=== PATIENT | female | born 1940 | race Caucasian/White ===

== ENCOUNTER 2016-09-14 16:22 | Emergency (ER) | payer OTHER, BC ==
[~2016-09-14] VITALS: Ht 162.6 cm; Wt 63.5 kg
--- NOTE | ~2016-09-14 | EKG ---
[place] [address] [facility] [place] [address] ELECTROCARDIOGRAM REPORT Name: SUSAN ZELAYA Room #: [facility]#: [id number] Admission: 09/14/16 Attend Phys: Discharge: 09/14/16 Date of : 44 Report #: [id number] THIS REPORT FOR: //name// [facility] ED Test Date: 2016-09-14 Test Time: 16:38:19 Pat Name: SUSAN ZELAYA Department: Room: Gender: F [employer] Professor: Tania CABALLERO : 1940 Requested By: Venu Cash Order Number: [id number] MD: Francis Burton Measurements Intervals [place] Rate: 61 P: 43 MD: 177 QRS: -6 QRSD: 88 T: 70 QT: 418 QTc: 421 Interpretive Statements Sinus rhythm Multiple atrial premature complexes Probable left atrial enlargement No previous ECG available for comparison Electronically Signed On 09-15-2016 16:15:49 CDT by Francis Burton [email or web address] <ELECTRONICALLY SIGNED> By: Francis Burton MD 09/15/16 1615 1638 1638 MD MICHAEL Phoenix
[2016-09-14] MEDS ORDERED: DOXYCYCLINE HYC50 MG PO (17:49)
[2016-09-14] MEDS ORDERED: ATORVASTATIN CA80 MG PO (17:49)
[2016-09-14] MEDS ORDERED: TOPROL XL100 MG PO (17:49)
[2016-09-14] MEDS ORDERED: PANTOPRAZOLE SO40 M1 PO (17:49)
[2016-09-14 18:00] LABS: ABSOLUTE NEUTROPHILS 3.3 thou/uL (1.4-8.2); BASOPHILS 0.8 % (0.0-2.0); EOSINOPHILS 2.3 % (0.0-3.0); HEMATOCRIT 39.2 % (37.0-47.0); HEMOGLOBIN 13.5 gm/dL (12.0-15.0); LYMPHOCYTES 29.6 % (24.0-44.0); MANUAL DIFF NO; MCH 29.8 pg (26.0-34.0); MCHC 34.3 g/dL (28.0-37.0); MCV 86.8 fL (80.0-100.0); PLATELET COUNT 199 thou/uL (150-400); POLYS 57.3 % (36.0-66.0); RBC 4.52 mil/uL (4.20-5.00); RDW 13.3 % (10.5-14.5); WBC 5.8 thou/uL (4.0-11.0)
[2016-09-14 18:03] LABS: URINE BILIRUBIN NEGATIVE (Negative); URINE BLOOD NEGATIVE (Negative); URINE COLOR YELLOW; URINE GLUCOSE-RANDOM* NEGATIVE (Negative); URINE KETONES NEGATIVE (Negative); URINE LEUKOCYTES-REFLEX 1+ (Negative); URINE PROTEIN (DIPSTICK) NEGATIVE (Negative); URINE SPECIFIC GRAVITY <= 1.005 (1.003-1.035); URINE UROBILINOGEN 0.2 E.U./dl (0.2-1.0)
[2016-09-14 18:11] LABS: ANION GAP 9 mmol/L (7-16); BUN 23 mg/dL (7-18); CALCIUM 9.4 mg/dL (8.5-10.1); CHLORIDE 104 mmol/L (98-107); CO2 29 mmol/L (21-32); CREATININE 1.1 mg/dL (0.6-1.0); GLUCOSE 87 mg/dL (74-106); POTASSIUM 4.1 mmol/L (3.5-5.1); SODIUM 142 mmol/L (136-145)
[2016-09-14 18:14] LABS: PROTIME 9.8 Seconds (9.3-11.4)
[2016-09-14 18:22] LABS: ALBUMIN 4.3 g/dL (3.4-5.0); ALKALINE PHOSPHATASE 84 U/L (46-116); MAGNESIUM 1.8 mg/dL (1.8-2.4); NT-PRO BRAIN NAT PEPTIDE 148 pg/mL (<300); SGOT 34 U/L (15-37); SGPT 37 U/L (30-65); TOTAL BILIRUBIN 0.5 mg/dL (<0.1-1.0); TOTAL PROTEIN 7.6 g/dL (6.4-8.2); TROPONIN-I < 0.04 ng/mL (<0.04-0.07)
[2016-09-14 18:22] LABS: CASTS None Seen /LPF (None Seen); CRYSTALS None Seen /LPF (None Seen); SQUAMOUS 0-3 Few /LPF (0-3); URINE RBC None Seen /HPF (0-2); URINE WBC-REFLEX 0-5 Rare /HPF (0-5)
[2016-09-14 20:06] VITALS: BP 150/74
== END 2016-09-14 20:08 | disposition home or self-care (01) ==
LOC: ER 16:22
PROVIDERS: Emergency Medicine
DX: R00.2 Palpitations (principal); R55 Syncope and collapse; I48.91 Unspecified atrial fibrillation; Z95.1 Presence of aortocoronary bypass graft; Z85.3 Personal history of malignant neoplasm of breast; Z88.0 Allergy status to penicillin